=== PATIENT | male | born 1990 | race Caucasian/White ===

== ENCOUNTER 2018-11-13 16:23 | Emergency (ER) | payer SELFPAY ==
[~2018-11-13] VITALS: Ht 180.3 cm; Wt 80.7 kg
--- NOTE | 2018-11-13 16:23 | NUR ---
BIBRA FOR WITNESSED SEIZURE, PT AAOX4, PT ON MONITOR, VSS, NAD NOTED, PENDING ER PROVIDER EVAL
[2018-11-13] MEDS ORDERED: LEVE500T9 PO (16:31)
[2018-11-13] MEDS ORDERED: TDAP [DIPH/PERTUSSIS/TET] 0.5 ML VIAL IM ONE ×2 (17:00→17:26)
[2018-11-13] MEDS ORDERED: LORAZEPAM INJ 2 MG/ML VIAL IV ONE (17:00)
[2018-11-13] MEDS ORDERED: LORAZEPAM INJ 2 MG/ML VIAL ONE (17:26)
[2018-11-13] MEDS ORDERED: LIDOCAINE HCL/PF 1% 30 ML SDV ONE (18:14)
[2018-11-13] MEDS ORDERED: LIDOCAINE 1%-EPI 1:100,000 50 ML VIAL IJ ONE (18:30)
--- NOTE | 2018-11-13 20:12 | NUR ---
Patient is resting comfortably in bed with eyes closed. Easily aroused. VSS.
--- NOTE | 2018-11-13 22:29 | NUR ---
ASSUMED CARE OF PT AT TIME OF DISCHARGE. Patient discharged to home in stable condition. Written and verbal after care instructions given. Patient verbalizes understanding of instruction.IV removed. Catheter intact and site benign. Pressure and 4x4 applied to site. No bleeding noted. TAXI VOUCHER PROVIDED TO PT PER HOUSE SUP. PT AMBULATED WITH STEADY GAIT NOTED
[2018-11-13 22:30] VITALS: BP 119/84
== END 2018-11-13 22:31 | disposition home or self-care (01) ==
LOC: ER 16:25
DX: R56.9 Unspecified convulsions (principal); S01.81XA Laceration without foreign body of other part of head, initial encounter; S80.211A Abrasion, right knee, initial encounter; S60.511A Abrasion of right hand, initial encounter; W18.39XA Other fall on same level, initial encounter; Y93.89 Activity, other specified; Y92.89 Other specified places as the place of occurrence of the external cause; Y99.8 Other external cause status
CPT/HCPCS: 12011; 90471; 90715; 96374; 99283; A4606; A6402; A6403; J2060; J3490 ×2